=== PATIENT | male | born 1990 | race Two or more races ===

== ENCOUNTER 2019-11-21 07:47 | Emergency (ER) | payer OTHER | END 2019-11-21 08:30 | disposition other institution (70) | LOC: ED 07:47 | DX: Z02.89 Encounter for other administrative examinations (principal) ==

== ENCOUNTER 2019-11-21 07:47 | Emergency (ER) | payer SELFPAY ==
[~2019-11-21] VITALS: Ht 172.7 cm; Wt 81.6 kg
[2019-11-21 07:49] VITALS: Ht 172.7 cm; Wt 81.6 kg
[2019-11-21 08:30] VITALS: BP 146/96
== END 2019-11-21 08:30 | disposition other institution (70) ==
LOC: ED 07:47
DX: S00.83XA Contusion of other part of head, initial encounter (principal); S40.812A Abrasion of left upper arm, initial encounter; I10 Essential (primary) hypertension; X58.XXXA Exposure to other specified factors, initial encounter; Y93.89 Activity, other specified; Y92.89 Other specified places as the place of occurrence of the external cause; Y99.8 Other external cause status
CPT/HCPCS: U0003-CS